=== PATIENT | male | born 1990 | race Asian ===

== ENCOUNTER 2018-12-13 11:56 | Emergency (ER) | payer OTHER ==
[~2018-12-13] VITALS: Ht 162.6 cm; Wt 53.1 kg
[2018-12-13 12:53] LABS: Basophils # (auto) 0.1 uL; Basophils % (auto) 1.1 % (0.0-2.0); Eosinophils # (auto) 0.1 uL; Eosinophils % (auto) 0.9 % (0.0-7.0); Hematocrit 49.4 % (41.0-53.0); Hemoglobin 16.5 g/dL (13.5-17.5); Lymphocytes # (auto) 2.4 uL; Lymphocytes % (auto) 29.9 % (10.0-50.0); Mean Corpuscular Hgb Conc. 33.4 g/dL (32.0-36.0); Mean Corpuscular Volume 92.7 fL (80.0-100.0); Monocytes # (auto) 0.5 uL; Monocytes % (auto) 6.1 % (0.0-12.0); Nucleated Red Blood Cells % 0.1 %; Platelet Count (auto) 230 10^3/uL (140-450); Red Blood Cells 5.33 10^6/uL (4.5-5.90)
[2018-12-13 13:01] LABS: BUN/Creatinine Ratio 19.2; Calcium 8.5 mg/dL (8.5-10.1); Potassium 3.4 mmol/L (3.5-5.1)
[2018-12-13 13:03] LABS: Bilirubin, Total 0.2 mg/dL (0.2-1.0); Total Protein 7.2 g/dL (6.4-8.2)
[2018-12-13] MEDS ORDERED: SODIUM CHLORIDE 0.9% 1,000 ML IV ONE ×2 (13:07)
[2018-12-13] MEDS ORDERED: ONDANSETRON HCL 4 MG/2 ML VIAL IV ONE (13:15)
[2018-12-13] MEDS ORDERED: NALBUPHINE HCL 10 MG/1ml INJECTION IV ONE (13:15)
[2018-12-13 15:36] LABS: Urine Bacteria NONE SEEN /hpf (None Seen); Urine Blood Negative /uL (Negative); Urine Specific Gravity 1.023 (1.001-1.035); Urine WBC <1 /hpf (0 - 3)
[2018-12-13 15:55] VITALS: BP 107/59
[2018-12-13] MEDS ORDERED: POTASSIUM CHL 10% (20 MEQ/15ML) 15ml ORAL SOLN PO ONE (16:00)
== END 2018-12-13 16:07 | disposition home or self-care (01) ==
LOC: ER 11:56
DX: R10.13 Epigastric pain (principal)
CPT/HCPCS: 36415; 71045; 74176; 80053; 81001; 82150; 83690; 84484; 85025; 96374; 96375; 99284; J2300; J2405; J7030